=== PATIENT | female | born 1950 | race Caucasian/White ===

== ENCOUNTER 2021-05-09 11:44 | Emergency (ER) | payer MEDICARE ==
[~2021-05-09] VITALS: Ht 157.5 cm; Wt 78.0 kg
[2021-05-09 16:13] LABS: BASO # 0.1 10^3/uL (0.0-0.2); BASO % 0.5 % (0.0-1.0); EOS # 0.1 10^3/uL (0.0-0.5); EOS % 1.1 % (0.0-3.0); HEMATOCRIT 44.5 % (36.0-47.0); HEMOGLOBIN 14.7 g/dl (12.0-15.5); LYMPH # 1.2 10^3/uL (1.5-5.0); LYMPH % 10.1 % (24.0-44.0); MEAN CORPUSCULAR HEMOGLOBIN 32.7 pg (27.0-33.0); MEAN CORPUSCULAR VOLUME 98.9 fl (80.0-96.0); MONO % 8.8 % (2.0-8.0); NEUTROPHILS % 79.1 % (36.0-66.0); PLATELET COUNT, AUTOMATED 283 10^3/uL (150-450); WHITE BLOOD COUNT 11.4 10^3/uL (4.0-10.0)
[2021-05-09 16:40] LABS: ALBUMIN 3.3 GM/DL (3.2-5.2); BILIRUBIN,DIRECT 0.2 MG/DL (0.0-0.2); BILIRUBIN,TOTAL 0.8 MG/DL (0.2-1.0); CALCIUM LEVEL 9.4 MG/DL (8.8-10.2); CREATININE FOR GFR 1.06 MG/DL (0.55-1.30); GLOMERULAR FILTRATION RATE 54.6 (>39); TOTAL PROTEIN 7.6 GM/DL (6.4-8.2)
[2021-05-09] MEDS ORDERED: NS 500 ML IV ONE (16:55)
--- NOTE | 2021-05-09 18:33 | REP ---
INDICATION: right kidney stone, right ureteral stent. COMPARISON: None. FINDINGS: KUB shows the intestinal gas pattern to be nonspecific. The organ silhouettes insofar as delineated are unremarkable. There is no evidence of free intraperitoneal air. A few nonspecific gas-filled nondilated small bowel loops are seen in the abdomen. There is a double pigtail stent on the right. There are bilateral pelvic phleboliths. IMPRESSION: Nonspecific. Possible mild ileus. Other findings as described above. <Electronically signed by Surendra Arce > 05/09/21 [id number]
--- NOTE | 2021-05-09 19:11 | REP ---
INDICATION: right ureteral stent, right kidney stone. COMPARISON: None. TECHNIQUE: Real-time sonographic evaluation of the kidneys with Doppler FINDINGS: Multiple ultrasonographic images of the right kidney show the right kidney to measure 10.6 x 4 x 3.5 cm. The renal cortical echotexture is unremarkable. There are no masses. There is good corticomedullary differentiation. There is no hydronephrosis. There are no perinephric fluid collections. Multiple ultrasonographic images of the left kidney show the left kidney to measure 9.9 x 3.5 x 4.4 cm. The renal cortical echotexture is unremarkable. There are no masses. There is good corticomedullary differentiation. There is no hydronephrosis. There are no perinephric fluid collections. IMPRESSION: Unremarkable renal ultrasonography. No stent is identified. <Electronically signed by Surendra Arce > 05/09/21 [id number]
[2021-05-09] MEDS ORDERED: VANCOMYCIN ORAL SOL 250MG/5ML ORAL SYRINGE PO ONE (19:40)
[2021-05-09] MEDS ORDERED: VANC125C3 PO (19:51)
[2021-05-09] MEDS ORDERED: BENA25CA4 PO (20:03)
[2021-05-09] MEDS ORDERED: ZOFR4TAB16 PO (20:03)
[2021-05-09] MEDS ORDERED: ONDANSETRON 4MG/2ML VIAL IV ONE (20:05)
[2021-05-09 20:52] VITALS: BP 161/71
== END 2021-05-09 21:34 | disposition home or self-care (01) ==
LOC: M ED 11:44
DX: A04.9 Bacterial intestinal infection, unspecified (principal); R31.29 Other microscopic hematuria; Z78.0 Asymptomatic menopausal state; Z88.0 Allergy status to penicillin; Z91.013 Allergy to seafood
CPT/HCPCS: 74018; 76775; 80048; 80076; 81001; 83690; 85025; 87086; 87505; 96361; 96374; 99284; J2405